=== PATIENT | male | born 1960 | race Caucasian/White ===

== ENCOUNTER 2019-07-19 10:05 | Emergency (ER) | payer OTHER ==
[~2019-07-19] VITALS: Ht 177.8 cm; Wt 74.7 kg
[~2019-07-19 10:05] MED LIST: ALPR0.5T PO; ATOR40TA PO; ERYT1OIN6 OD; LEVO125T PO; LEVO137T2 PO
--- NOTE | 2019-07-19 10:35 | PHYS DOC ---
Past History Past Medical History: No Pertinent History Past Surgical History: Other Alcohol Use: None Drug Use: None General Adult EDM: Chief Complaint: LACERATION/AVULSION HPI: HPI: Patient is a 58-year-old male who presents with injury to his left thigh after accidentally cutting his leg with a chainsaw. Patient rates pain is moderate. He states that there was very little bleeding from wound. Patient denies any other injuries. Patient is not up-to-date on his tetanus. [] Review of Systems: Review of Systems: Constitutional: Denies fever or chills Respiratory: Denies cough or shortness of breath Cardiovascular: Denies chest pain or edema Musculoskeletal: Left thigh injury and pain Integument: Positive laceration. Neurologic: Denies headache, focal weakness or sensory changes A full 10 point review of systems has been reviewed and is otherwise negative. Heart Score: Risk Factors: Risk Factors: DM, Current or recent (<one month) smoker, HTN, HLP, family history of CAD, obesity. Risk Scores: Score 0 - 3: 2.5% MACE over next 6 weeks - Discharge Home Score 4 - 6: 20.3% MACE over next 6 weeks - Admit for Clinical Observation Score 7 - 10: 72.7% MACE over next 6 weeks - Early Invasive Strategies Current Medications: Current Meds: Current Medications Medications (Trade) Dose Ordered Sig/[facility] Start Time Stop Time Status Last Admin Dose Admin Cefazolin Sodium 1 gm/Sodium Chloride 50 ml @ 100 mls/hr 1X ONCE 07/19/19 10:30 07/19/19 10:59 UNV Fentanyl Citrate (Fentanyl 2ml Vial) 50 mcg 1X ONCE 07/19/19 10:30 07/19/19 10:31 UNV Allergies: Allergies: Allergies Coded Allergies Type Severity Reaction Last Updated Verified Sulfa (Sulfonamide Antibiotics) Allergy Unknown 11/25/14 Yes aspirin Allergy Unknown 09/17/13 Yes Physical Exam: PE: Constitutional: Well developed, well nourished, no acute distress, non-toxic appearance. [] HENT: Normocephalic, atraumatic, bilateral external ears normal, oropharynx moist, no oral exudates, nose normal. [] Eyes: PERRLA, EOMI, conjunctiva normal, no discharge. [] Neck: Normal range of motion, no tenderness, supple, no stridor. [] Cardiovascular: Regular rate and rhythm [] Lungs & Thorax: Bilateral breath sounds clear to auscultation [] Abdomen: Bowel sounds normal, soft, no tenderness. [] Skin: Positive laceration. [] Extremities: Left thigh demonstrates large laceration to the ventral aspect of the mid thigh, extending down to muscle layer without apparent injury to muscle. There is significant amount of debris remaining within the wound extending all the way down to muscle. Margins are ragged. [] Neurologic: Alert and oriented X 3, no focal deficits noted. [] EKG: EKG: [] Radiology/Procedures: Radiology/Procedures: [] Course & Med Decision Making: Course & Med Decision Making Pertinent Labs and Imaging studies reviewed. (See chart for details) Patient moved to room upon arrival was evaluated by ER medical staff after which an IV was established and blood work was drawn. Patient given a dose of IV clindamycin. Given the extent of the injury and amount of swelling to the wound, it was deemed most appropriate that this patient go to the OR to wash the wound out. On-call orthopedics at [place] was contacted and Dr. Lyons will accept patient in transfer. Dragon Disclaimer: Dragon Disclaimer: This electronic medical record was generated, in whole or in part, using a voice recognition dictation system. Departure Departure: Impression: Primary Impression: Laceration of left thigh Qualified Codes: S71.112A - Laceration without foreign body, left thigh, initial encounter Additional Impression: Contact with chainsaw as cause of accidental injury Disposition: 02 XFER [facility] Admitting Physician: Other (Dr. Lyons) Condition: GOOD Referrals: ABBEY GALLO MD (PCP) Justification of Admission: Justification of Admission: Justification of Admission Dx: N/A TWYLA HILL Jr. DO Jul 19, 2019 10:35
[2019-07-19 10:36] LABS: BASO # 0.1 x10^3/uL (0.0-0.2); BASO % 1 % (0-3); EOS # 0.3 x10^3/uL (0.0-0.7); EOS % 4 % (0-3); HEMATOCRIT 41.4 % (39.0-53.0); HEMOGLOBIN 14.3 g/dL (13.0-17.5); LYMPH # 3.9 x10^3/uL (1.0-4.8); LYMPH % 43 % (24-48); MEAN CORPUSCULAR HEMOGLOBIN 32 pg (25-35); MEAN CORPUSCULAR HGB CONC 35 g/dL (31-37); MEAN CORPUSCULAR VOLUME 92 fL (79-100); MONO # 0.8 x10^3/uL (0.0-1.1); MONO % 9 % (0-9); NEUT % 44 % (31-73); PLATELET COUNT 386 x10^3/uL (140-400); RED CELL DISTRIBUTION WIDTH 12.7 % (11.5-14.5); WHITE BLOOD COUNT 9.2 x10^3/uL (4.0-11.0)
[2019-07-19 10:39] VITALS: BP 144/83
[2019-07-19] MEDS ORDERED: ceFAZolin SODIUM 1 GM VIAL ONE (10:41)
[2019-07-19] MEDS ORDERED: IV NORMAL SALINE 50ML 50 ML ONE (10:41)
[2019-07-19 10:43] LABS: CALCIUM 7.8 mg/dL (8.5-10.1); CREATININE 1.1 mg/dL (0.7-1.3); POTASSIUM 3.4 mmol/L (3.5-5.1)
[2019-07-19] MEDS ORDERED: CLINDAMYCIN 600MG PREMIX 50 ML IV ONE (10:45)
[2019-07-19] MEDS ORDERED: DIPH,PERTUSS(ACELL),TET VAC/PF 0.5 ML SYRINGE. VAX IM ONE (10:45)
[2019-07-19 10:48] LABS: ALBUMIN 3.7 g/dL (3.4-5.0); ALBUMIN/GLOBULIN RATIO 1.1 (1.0-1.7); TOTAL BILIRUBIN 0.4 mg/dL (0.2-1.0)
== END 2019-07-19 11:20 | disposition short-term general hospital (02) ==
LOC: ER 10:05
DX: S71.112A Laceration without foreign body, left thigh, initial encounter (principal); Z88.2 Allergy status to sulfonamides; Z88.6 Allergy status to analgesic agent; W29.3XXA Contact with powered garden and outdoor hand tools and machinery, initial encounter; Y93.89 Activity, other specified; Y92.89 Other specified places as the place of occurrence of the external cause; Y99.8 Other external cause status
CPT/HCPCS: 36415; 80053; 85025; 90471; 90715; 96365; 96375; 99285; J3010; J3490